=== PATIENT | female | born 1985 | race Caucasian/White ===

== ENCOUNTER 2018-09-01 11:47 | Day surgery (SDC) | payer OTHER ==
[2018-09-01] MEDS ORDERED: Fentanyl 100 MCG/2 ML VIAL ONE (13:48)
== END 2018-09-01 13:20 | disposition home or self-care (01) ==
LOC: SDC 11:47
PROVIDERS: ATTEND Obstetrics & Gynecology
DX: O02.1 Missed abortion (principal); Z53.9 Procedure and treatment not carried out, unspecified reason
CPT/HCPCS: 84702; J3010

== ENCOUNTER 2018-09-04 10:05 | Day surgery (SDC) | payer OTHER ==
[2018-09-03 11:54] VITALS: BMI 36.9
[2018-09-04 11:24] LABS: #Basophils 0.1 thou/uL (0.0-0.2); #Eosinphils 0.2 thou/uL (0.0-0.7); #Lymphocytes 1.9 thou/uL (1.20-3.40); #Monocytes 0.4 thou/uL (0.11-0.59); #Neutrophils 4.7 thou/uL (1.40-6.50); %Basophils 1.3 % (0.0-1.0); %Eosinophils 3.4 % (0.0-10.0); %Neutrophils 63.3 % (42.0-75.0); Hemoglobin 12.9 g/dL (12.0-16.0); Mean Corpuscular HGB CONC 36.1 g/dL (32.0-36.0); Mean Corpuscular Hemoglobin 31.8 pg (27.0-31.0); Mean Corpuscular Volume 87.9 fL (78.0-98.0); Mean Platelet Volume 6.5 fL (7.4-10.4); Platelet Count 275 thou/uL (130-400); RBC Distribution Width 11.5 % (11.5-14.5); Red Blood Cell (RBC) Count 4.05 mill/uL (4.20-5.40); White Blood Cell (WBC) Count 7.3 thou/uL (4.8-10.8)
[2018-09-04] MEDS ORDERED: CEFAZOLIN 2 GM/50 ML BAG ONE (11:30)
[2018-09-04] MEDS ORDERED: Midazolam HCl 2 mg/2 ml Vial ONE ×2 (12:39→12:40)
[2018-09-04] MEDS ORDERED: Fentanyl 100 MCG/2 ML VIAL ONE (12:40)
[2018-09-04] MEDS ORDERED: Famotidine/PF 20 mg/2ml Vial ONE (12:40)
[2018-09-04] MEDS ORDERED: Ibuprofen 800 MG TAB PO PRN (15:44)
[2018-09-04] MEDS ORDERED: HYDROcodone/Acetaminophen 5/325 mg Tablet PO PRN (15:45)
[2018-09-04] MEDS ORDERED: Tranexamic Acid 1,000 MG/10 ML VIAL ONE (16:14)
[2018-09-04] MEDS ORDERED: Tranexamic Acid 1,000 MG in Sodium Chloride 0.9% 100 ML IVPB ONE ×2 (16:30→17:15)
--- NOTE | 2018-09-04 19:27 | OP ---
DATE OF PROCEDURE: 09/04/2018 PREOPERATIVE DIAGNOSES: Abnormal early versus molar . PROCEDURE PERFORMED: Cervical dilation with sharp and suction curettage. ANESTHESIA: GETA. COMPLICATIONS: None. ESTIMATED BLOOD LOSS: 1300 mL. INTRAOPERATIVE FINDINGS: 1. Uterus sounds to 12 cm. 2. Large amount of products and blood clots removed with suction curettage filling 3 trap canisters. 3. Uterine endometrial cry noted in all planes of the endometrium after suction curettage was completed. 4. Uterus contracted and firm at the completion of procedure. 5. No bleeding from cervical os at the completion of the procedure. DESCRIPTION OF PROCEDURE: The patient was taken back to the OR with IV fluids running. When she was in the OR, general anesthesia was obtained and the patient was placed in low dorsal lithotomy position. The vagina was prepped and draped in normal fashion for D and C. The bladder was drained approximately 200 mL of urine. An operative speculum was placed into the vagina and the cervix was easily visualized, and the anterior lip of the cervix was grasped with a single-tooth tenaculum. The uterus sounded to 12 cm. A 7 mm curette was attached to the suction tubing and the cervix was serially dilated to offer passage of this curettage. The suction tip was gently passed through the cervix into the endometrial canal to the uterine fundus. In a series of passes, the suction curettage was rotated 360 degrees gently within the uterine cavity with immediate notice of passage of the significant amount of tissue and clot. After the first suction trap canister was full, while awaiting for the replacement of the second trap, significant amount of rapid bleeding was noted from the uterus. Once the suction could be turned back on and was activated, large amounts of tissue again filled the next canister and the bleeding slowed to normal expected bleeding during a curettage. Once minimal blood or tissue was noted to pass through the suction tubing, the suction curette was removed, and a sharp curette was passed. While endometrial cry was noted posteriorly, it was felt that a significant amount of tissue remained anteriorly with a sharp curette. At this time, the suction curette was replaced into the endometrial cavity, and more tissue was collected. At one point during the curettage, a larger suction tip was attempted, however, it did not pass easily. Therefore, the curettage was completed using the 7 mm tip. Again, after minimal blood or tissue was noted to pass through the suction curettage, the sharp curette was passed again this time with the uterus noted to have contracted, significantly smaller in size and uterine cry noted in all planes of the endometrium. The suction tubing was passed one more time with no blood or tissue returned. 3 trap canisters were filled during the procedure with tissue and clot, approximately 1200 mL of blood with only a minimal amount of irrigation fluid, which I would consider negligible, was noted in the suction canister and approximately 100 mL of blood noted within the drape for a total EBL was 1300 mL. The patient was stable throughout the case. The single-tooth tenaculum was removed with no bleeding noted from the anterior lip of the cervix. At the completion of the case, there was no bleeding from the cervical os. The patient was cleaned, dried, and taken out of lithotomy position and transferred to the recovery room in good condition. Job ID: [id number]
[2018-09-04] MEDS ORDERED: PROPOFOL 200 MG/20 ML VIAL ONE (21:06)
[2018-09-04] MEDS ORDERED: Lidocaine 1% PF 5 ML VIAL ONE (21:06)
[2018-09-04] MEDS ORDERED: Succinylcholine Chloride 20 MG/ML 10 ml SYRINGE FS ONE (21:06)
[2018-09-04] MEDS ORDERED: PHENYLEPHRINE-NS 100 MCG/ML 10 ML SYRINGE ONE (21:06)
[2018-09-04] MEDS ORDERED: Metoclopramide HCl 10 MG/2 ML VIAL ONE (21:06)
[2018-09-04] MEDS ORDERED: CEFAZOLIN 1 GM VIAL ONE (21:06)
[2018-09-04] MEDS ORDERED: Ondansetron PF 4 MG/2 ML Vial ONE (21:06)
[2018-09-04] MEDS ORDERED: Dexamethasone 20 MG/5 ML VIAL ONE (21:06)
[2018-09-04] MEDS ORDERED: Ketorolac Tromethamine 30 MG/ML VIAL ONE (21:06)
[2018-09-04] MEDS ORDERED: Sterile Water 10 ML VIAL ONE (21:06)
== END 2018-09-04 18:20 | disposition home or self-care (01) ==
LOC: SDC 10:05
PROVIDERS: ATTEND Obstetrics & Gynecology
PROC: 10D17ZZ Extraction of Products of Conception, Retained, Via Natural or Artificial Opening (ICD-10-PCS; principal; 2018-09-04)
DX: O02.1 Missed abortion (principal)
CPT/HCPCS: 36415; 84702; 85025; 86850; 86900; 86901; 88305; A4216; J0131; J0690; J1100; J1885; J2001; J2250; J2405; J2704; J2765; J3010; J7050; S0028

== ENCOUNTER 2025-06-03 10:41 | Outpatient (CLI) | payer OTHER | END 2025-06-03 10:42 | disposition home or self-care (01) | LOC: BICMAMMO 10:41 | PROVIDERS: ATTEND Physician Assistant | DX: Z12.31 Encounter for screening mammogram for malignant neoplasm of breast (principal); Z80.3 Family history of malignant neoplasm of breast | CPT/HCPCS: 77063; 77067 ==